=== PATIENT | male | born 1990 | race Two or more races ===

== ENCOUNTER 2017-03-08 03:46 | Emergency (ER) | payer SELFPAY ==
[~2017-03-08] VITALS: Ht 160 cm; Wt 59.0 kg
--- NOTE | 2017-03-08 04:01 | Emergency Room Report ---
History of Present Illness General Chief Complaint: Behavioral Complaint Source: Patient, EMS Present Illness HPI Is a 26-year-old male who has a history drugs and alcohol abuse. He has been picked up by EMS several times. Someone called 911 because he was walking in the street. He denies any suicidal thought homicidal thought. He's shaky and admit to using methamphetamine. There was a questionable alcohol abuse also. No other complaint. No trauma. Allergies: Coded Allergies: No Known Allergies (Unverified , 03/08/17) Patient History Past Medical History: see triage record, old chart reviewed Past Surgical History: unable to obtain Family History: none Social History: ETOH, drug use Immunizations: other Reviewed Nursing Documentation: PMH: Agreed, PSxH: Agreed Review of Systems ENT: Denies: sore throat Cardiovascular: Denies: chest pain, palpitations Gastrointestinal/Abdominal: Denies: diarrhea, nausea, vomiting Musculoskeletal: Denies: back problems Skin: Denies: rash Neurological: Denies: OLVERA, seizures All Other Systems: negative except mentioned in HPI Physical Exam Vital Signs Date Time Temp Pulse Resp B/P Pulse Ox O2 Delivery O2 Flow Rate FiO2 03/08/17 03:46 98.2 105 22 154/108 98 Room Air vitals with hypertension Sp02 EP Interpretation: reviewed, normal General Appearance: alert/responsive, no apparent distress, non-toxic Head: normocephalic, atraumatic Eyes: PERRL, EOMI ENT: oropharynx normal Neck: supple/symm/no masses Respiratory: effort normal, no rhonchi, no wheezing Cardiovascular: no murmur, gallop, rub Gastrointestinal: non-tender, no mass, non-distended, no rebound/guarding, normal bowel sounds Musculoskeletal: other - Patient shaky Neurologic: oriented x3, sensory intact, motor strength/tone normal Psychiatric: other - Flat affect Suicide Risk Assessment: Suicidal Ideation: No Had intent to initiate attempt: No Pt's plan for suicide attempt: No Has means to complete attempt: No Skin: no rash, normal palpation Medical Decision Making Diagnostic Impression: Primary Impression: Psychosis Qualified Codes: F23 - Brief psychotic disorder Additional Impression: Drug abuse ER Course 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 No suicidal thought or homicidal. We'll discharge home. This patient is a chronic risk of self injury due to poor impulse control, limited coping skills, and judgment intermittently impaired by intoxication. I believe that the available clinical evidence to suggest that these characteristics derived primarily from personality disorder and are likely very stable over time. Hospitalization would likely attenuate risk of self-harm only during half-way period, without lasting risk reduction. Serious self-harm , while possible, would likely be inadvertent, and because of impulsivity, and foreseeable. For these reasons, I do not believe hospitalization would provide meaningful reduction in risk of self-harm. Last Vital Signs Date Time Temp Pulse Resp B/P Pulse Ox O2 Delivery O2 Flow Rate FiO2 03/08/17 03:46 98.2 105 22 154/108 98 Room Air Status: improved Disposition: HOME, SELF-CARE Condition: Stable Additional Instructions: abstain from drugs and alcohol. Followup with your Dr. 7 days. Return if worse. DINORA CHISHOLM M.D. Mar 08, 2017 04:01
[2017-03-08 05:35] VITALS: BP 128/86
== END 2017-03-08 05:30 | disposition home or self-care (01) ==
LOC: EDBD 03:46 → EMR 04:00
DX: F29 Unspecified psychosis not due to a substance or known physiological condition (principal); F15.159 Other stimulant abuse with stimulant-induced psychotic disorder, unspecified
CPT/HCPCS: 80300; 99282